=== PATIENT | male | born 1955 | race Caucasian/White ===

== ENCOUNTER 2020-08-02 20:08 | Emergency (ER) | payer OTHER ==
[~2020-08-02] VITALS: Ht 182.9 cm; Wt 115.9 kg
[~2020-08-02 20:08] MED LIST: PERC5TAB8 OR
[2020-08-02] MEDS ORDERED: ONDANSETRON 4MG/2ML VIAL IV ONE (21:15)
[2020-08-02] MEDS ORDERED: MORPHINE 4 MG/ML 1ML VIAL/SYRINGE (J2270) IV PRN (21:15)
[2020-08-02 21:22] LABS: BASO % 0.5 % (0.0-1.0); EOS # 0.1 10^3/uL (0.0-0.5); EOS % 1.7 % (0.0-3.0); HEMATOCRIT 53.8 % (42.0-52.0); HEMOGLOBIN 17.8 g/dl (13.5-17.5); LYMPH # 1.8 10^3/uL (1.5-5.0); LYMPH % 23.7 % (24.0-44.0); MEAN CORPUSCULAR HEMOGLOBIN 30.9 pg (27.0-33.0); MEAN CORPUSCULAR HGB CONC 33.1 g/dl (32.0-36.5); MEAN CORPUSCULAR VOLUME 93.4 fl (80.0-96.0); MONO # 0.5 10^3/uL (0.0-0.8); MONO % 6.5 % (2.0-8.0); NEUTROPHILS # 5.2 10^3/uL (1.5-8.5); NEUTROPHILS % 67.3 % (36.0-66.0); PLATELET COUNT, AUTOMATED 245 10^3/uL (150-450); RED BLOOD COUNT 5.76 10^6/uL (4.30-6.10); WHITE BLOOD COUNT 7.7 10^3/uL (4.0-10.0)
[2020-08-02 21:31] LABS: BLOOD UREA NITROGEN 19 MG/DL (7-18); CALCIUM LEVEL 8.9 MG/DL (8.8-10.2); CARBON DIOXIDE LEVEL 25 MEQ/L (21-32); CHLORIDE LEVEL 107 MEQ/L (98-107); CK-MB VALUE MASS < 1.0 NG/ML (<3.6); CPK CREATINE PHOSPHOKINASE 61 U/L (39-308); CREATININE FOR GFR 1.09 MG/DL (0.70-1.30); GLOMERULAR FILTRATION RATE > 60.0 (>49); GLUCOSE, FASTING 110 MG/DL (70-100); MB/CK RELATIVE INDEX 1.64 (< OR =4); POTASSIUM SERUM 3.4 MEQ/L (3.5-5.1); SODIUM LEVEL 141 MEQ/L (136-145); TROPONIN I < 0.02 NG/ML (< 0.10)
[2020-08-02] MEDS ORDERED: ISOVUE-370 76% 100ML VIAL As Ordered ONE (21:35)
--- NOTE | 2020-08-02 21:46 | REPVR ---
PROCEDURE INFORMATION: Exam: XR Chest Exam date and time: 08/02/2020 9:31 PM Age: 65 years old Clinical indication: Other: Chest pain TECHNIQUE: Imaging protocol: XR of the chest Views: 1 view. COMPARISON: CR Chest, 2 view PA, Lat 05/10/2015 11:45 AM FINDINGS: Lungs: Unremarkable. No consolidation. Pleural spaces: Unremarkable. No pleural effusion. No pneumothorax. Heart/Mediastinum: Unremarkable. No cardiomegaly. Bones/joints: Unremarkable. IMPRESSION: No acute findings. Electronically signed by: Wilton Marcial On 08/02/2020 21:46:52 PM
--- NOTE | 2020-08-02 23:07 | REPVR ---
PROCEDURE INFORMATION: Exam: CT Angiography Chest With Contrast Exam date and time: 08/02/2020 9:44 PM Age: 65 years old Clinical indication: Other: R/O tad TECHNIQUE: Imaging protocol: Computed tomographic angiography of the chest with contrast. 3D rendering (Not supervised by radiologist): MIP and/or 3D reconstructed images were created by the technologist. Radiation optimization: All CT scans at this facility use at least one of these dose optimization techniques: automated exposure control; mA and/or kV adjustment per patient size (includes targeted exams where dose is matched to clinical indication); or iterative reconstruction. Contrast material: ISOVUE 370; Contrast volume: 100 ml; Contrast route: INTRAVENOUS (IV); COMPARISON: CR PORTABLE CHEST X-RAY 08/02/2020 9:25 PM FINDINGS: Pulmonary arteries: Suboptimal opacification of the pulmonary arteries. The main pulmonary artery measures 32 mm. No central pulmonary embolism is identified. Aorta: The ascending thoracic aorta measures 39 mm. No gross or obvious aortic dissection is identified distal to the mid arch. Artifact and image degradation precludes detailed evaluation of the ascending thoracic aorta. Lungs: Minimal bibasilar fibro-atelectatic change with slight interstitial coarsening. Pleural spaces: Unremarkable. No pneumothorax. No pleural effusion. Heart: Unremarkable. No cardiomegaly. No pericardial effusion. Lymph nodes: Unremarkable. No enlarged lymph nodes. Bones/joints: Unremarkable. No acute fracture. Soft tissues: Unremarkable. IMPRESSION: 1. Minimal bibasilar fibro-atelectatic change with slight interstitial coarsening. 2. Otherwise negative CTA chest. No central pulmonary embolism is identified. Motion and/or beam hardening artifact precludes detailed evaluation of the ascending thoracic aorta and subtle aortic dissection is not excluded on this basis although no gross or obvious dissection is seen. Not grossly ruled in does not mean ruled out. Electronically signed by: Kalpesh Su On 08/02/2020 23:08:22 PM
--- NOTE | 2020-08-02 23:11 | REPVR ---
PROCEDURE INFORMATION: Exam: CT Angiography Abdomen and Pelvis With Contrast Exam date and time: 08/02/2020 9:44 PM Age: 65 years old Clinical indication: Other: R/O tad TECHNIQUE: Imaging protocol: Computed tomographic angiography of the abdomen and pelvis with contrast material. 3D rendering (Not supervised by radiologist): MIP and/or 3D reconstructed images were created by the technologist. Radiation optimization: All CT scans at this facility use at least one of these dose optimization techniques: automated exposure control; mA and/or kV adjustment per patient size (includes targeted exams where dose is matched to clinical indication); or iterative reconstruction. Contrast material: ISOVUE 370; Contrast volume: 100 ml; Contrast route: INTRAVENOUS (IV); COMPARISON: CT ABD PELVIS WITH CONTRAST 05/03/2015 1:07 PM FINDINGS: Aorta: There is mild calcification of the abdominal aorta with extension into the iliac arteries. There is no abdominal aortic aneurysm or dissection. Celiac trunk and mesenteric arteries: The celiac artery and branches appear normal. The SMA and branches appear normal. The GINGER is patent. Renal arteries: There are 2 patent right renal arteries and a single patent left renal artery. Right iliac arteries: No occlusion or significant stenosis. Left iliac arteries: No occlusion or significant stenosis. Other veins: Incidental note of a retroaortic left renal vein. Liver: No mass. Gallbladder and bile ducts: Unremarkable. No calcified stones. No ductal dilation. Pancreas: Unremarkable. No mass. No ductal dilation. Spleen: Unremarkable. No splenomegaly. Adrenal glands: Unremarkable. No mass. Kidneys and ureters: There is a right renal cyst measuring 6.9 cm with a Hounsfield measurement of 7 consistent with a Bosniak 1 cyst. This is redemonstrated since 05/03/2015 and is mildly increased in size. Nonobstructing bilateral renal calculi. Stomach and bowel: There is colonic diverticulosis without evidence of diverticulitis. Appendix: A normal appendix is seen. Intraperitoneal space: Unremarkable. No free air. No significant fluid collection. Lymph nodes: Unremarkable. No enlarged lymph nodes. Urinary bladder: Unremarkable. No mass. Reproductive: Unremarkable as visualized. Bones/joints: No acute fracture. No dislocation. Soft tissues: Unremarkable. IMPRESSION: 1. Colonic diverticulosis without diverticulitis. 2. Nonobstructing bilateral renal calculi. 3. Otherwise negative CTA abdomen/pelvis. No abdominal aortic aneurysm or dissection. Electronically signed by: Kalpesh Su On 08/02/2020 23:12:32 PM
[2020-08-02] MEDS ORDERED: KETOROLAC 30 MG/ML 1ML VIAL IV ONE (23:30)
[2020-08-03 00:31] VITALS: BP 118/84
[2020-08-03 02:32] LABS: CK-MB VALUE MASS < 1.0 NG/ML (<3.6); CPK CREATINE PHOSPHOKINASE 62 U/L (39-308); MB/CK RELATIVE INDEX 1.61 (< OR =4); TROPONIN I < 0.02 NG/ML (< 0.10)
--- NOTE | 2020-08-03 15:20 | ECGEPIP ---
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
--- NOTE | 2020-08-03 15:21 | ECGEPIP ---
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
== END 2020-08-03 02:54 | disposition home or self-care (01) ==
LOC: M ED 20:08
DX: R10.30 Lower abdominal pain, unspecified (principal); R07.9 Chest pain, unspecified; M54.2 Cervicalgia; K57.30 Diverticulosis of large intestine without perforation or abscess without bleeding; N20.0 Calculus of kidney; I10 Essential (primary) hypertension; K21.9 Gastro-esophageal reflux disease without esophagitis; E66.9 Obesity, unspecified; Z87.891 Personal history of nicotine dependence
CPT/HCPCS: 71045; 71275; 74174; 80047; 80048; 82550; 82553; 85025; 93005; 93041; 94760; 96374; 96375; 99285; J1885; J2270; J2405; Q9967

== ENCOUNTER 2020-09-16 07:44 | Emergency (ER) | payer MEDICARE ==
[~2020-09-16] VITALS: Ht 182.9 cm; Wt 113.6 kg
[2020-09-16] MEDS ORDERED: ATOR1TAB19 PO (08:16)
[2020-09-16] MEDS ORDERED: LISI10TA22 PO (08:16)
--- NOTE | 2020-09-16 08:17 | REP ---
INDICATION: CHEST PAIN. COMPARISON: Comparison chest x-ray August 02, 2020. TECHNIQUE: Portable upright AP chest radiograph. FINDINGS: The lungs are well inflated and free of infiltrate. Pleural angles are sharp. Heart size is normal. Pulmonary vasculature is not increased. Monitoring electrodes are is visible. IMPRESSION: No active disease. <Electronically signed by Mal Camacho > 09/16/20 [id number]
[2020-09-16 08:27] LABS: BASO % 0.5 % (0.0-1.0); EOS # 0.1 10^3/uL (0.0-0.5); HEMOGLOBIN 17.4 g/dl (13.5-17.5); MEAN CORPUSCULAR HEMOGLOBIN 31.8 pg (27.0-33.0); MEAN CORPUSCULAR HGB CONC 34.1 g/dl (32.0-36.5); MEAN CORPUSCULAR VOLUME 93.1 fl (80.0-96.0); MONO # 0.3 10^3/uL (0.0-0.8); MONO % 5.2 % (2.0-8.0); NEUTROPHILS # 4.3 10^3/uL (1.5-8.5); NEUTROPHILS % 75.1 % (36.0-66.0); PLATELET COUNT, AUTOMATED 230 10^3/uL (150-450); RED BLOOD COUNT 5.48 10^6/uL (4.30-6.10); WHITE BLOOD COUNT 5.7 10^3/uL (4.0-10.0)
[2020-09-16 08:32] LABS: INR 1.1; PROTHROMBIN TIME 14.5 SECONDS (12.5-14.3)
[2020-09-16 08:33] LABS: PARTIAL THROMBOPLASTIN TIME 28.2 SECONDS (24.2-38.5)
[2020-09-16 08:59] LABS: ALT/SGPT 36 U/L (12-78); BILIRUBIN,DIRECT 0.3 MG/DL (0.0-0.2); BILIRUBIN,TOTAL 0.8 MG/DL (0.2-1.0); BLOOD UREA NITROGEN 16 MG/DL (7-18); CALCIUM LEVEL 9.5 MG/DL (8.8-10.2); CARBON DIOXIDE LEVEL 23 MEQ/L (21-32); CHLORIDE LEVEL 110 MEQ/L (98-107); CK-MB VALUE MASS < 1.0 NG/ML (<3.6); CPK CREATINE PHOSPHOKINASE 52 U/L (39-308); FREE T4 1.09 NG/DL (0.76-1.46); GLOMERULAR FILTRATION RATE > 60.0 (>49); GLUCOSE, FASTING 135 MG/DL (70-100); LIPASE 78 U/L (73-393); MB/CK RELATIVE INDEX 1.92 (< OR =4); POTASSIUM SERUM 3.4 MEQ/L (3.5-5.1); SODIUM LEVEL 141 MEQ/L (136-145); TROPONIN I < 0.02 NG/ML (< 0.10)
--- NOTE | 2020-09-16 09:40 | ECGEPIP ---
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
--- NOTE | 2020-09-16 11:54 | REP ---
INDICATION: right radicular pain. COMPARISON: None. TECHNIQUE: Sagittal T1, T2, STIR, axial T1 and T2 weighted images obtained. FINDINGS: There is [id number] multilevel degenerative disc disease with loss of disc height and normal disc signal seen diffusely throughout the lumbar spine. Vertebral heights are overall preserved. No malalignments. Conus ends normally at L1 level. On the review of axial images, At L1-2 no significant canal or foraminal narrowing At L2-3 and L3-4 disc bulge with mild canal narrowing and mild bilateral foraminal narrowing At L4-5 there is a Schmorl's node in the inferior endplate of L4. There is mild canal narrowing and fada-ez-eamhwduk bilateral foraminal narrowing that appears greater on the right. At L5-S1 loss of disc height with moderate bilateral foraminal narrowing and no significant canal stenosis. IMPRESSION: 1. No acute findings. 2. Akiu-vg-uoehkpdm multilevel degenerative disc disease. 3. No limiting canal stenosis. 4. Developing Schmorl's node in the inferior endplate of L4. 5. Degenerative changes contribute to [id number]-[id number]-ybbldhml bilateral foraminal narrowing at L4-5, and moderate bilateral foraminal narrowing at L5-S1. <Electronically signed by Bret Darden > 09/16/20 [id number]
[2020-09-16] MEDS ORDERED: OMEG12003 PO (12:09)
[2020-09-16] MEDS ORDERED: VITA-243 PO (12:09)
[2020-09-16] MEDS ORDERED: CYCL5TAB PO (12:39)
[2020-09-16] MEDS ORDERED: NAPR-837 PO (12:39)
[2020-09-16 12:45] VITALS: BP 169/88
== END 2020-09-16 12:54 | disposition home or self-care (01) ==
LOC: M ED 07:44
DX: M51.16 Intervertebral disc disorders with radiculopathy, lumbar region (principal); R07.9 Chest pain, unspecified; I10 Essential (primary) hypertension; K21.9 Gastro-esophageal reflux disease without esophagitis; Z79.899 Other long term (current) drug therapy

== ENCOUNTER → 2020-10-29 | Outpatient (REF) | payer MEDICARE ==
[~2020-10-29] MED LIST changes: +ATOR1TAB19 PO; +CYCL5TAB PO; +LISI10TA22 PO; +NAPR-837 PO; +OMEG12003 PO; +VITA-243 PO
[2020-10-29 18:08] LABS: APPEARANCE, URINE CLEAR (CLEAR); BACTERIA, URINE AUTO NEGATIVE (NEGATIVE); BILIRUBIN, URINE AUTO NEGATIVE (NEGATIVE); BLOOD, URINE BLOOD 3+ (NEGATIVE); COLOR, URINE YELLOW (YELLOW); GLUCOSE, URINE (UA) AUTO NEGATIVE (NEGATIVE); KETONE, URINE AUTO NEGATIVE (NEGATIVE); LEUKOCYTE ESTERASE, URINE AUTO NEGATIVE (NEGATIVE); NITRITE, URINE AUTO NEGATIVE (NEGATIVE); PROTEIN, URINE AUTO NEGATIVE (NEGATIVE); RBC, URINE AUTO 77 /HPF (0-3); SQUAMOUS EPITHELIAL CELL UR AU 0 /HPF (0-6); UROBILINOGEN, URINE AUTO 0.2 mg/dL (0.0-2.0); WBC, URINE AUTO 2 /HPF (0-3)
== END ==
LOC: M SMT 17:27
PROVIDERS: ATTEND Nurse Practitioner Family
DX: N20.0 Calculus of kidney (principal); R31.9 Hematuria, unspecified
CPT/HCPCS: 81001; 87086; 88108; G0463

== ENCOUNTER → 2020-12-06 | Outpatient (CLI) | payer MEDICARE | LOC: M SLEEP HO 11:22 | PROVIDERS: ATTEND Internal Medicine Cardiovascular Disease | DX: I27.20 Pulmonary hypertension, unspecified (principal) ==

== ENCOUNTER → 2021-12-16 | Outpatient (REF) | payer MEDICARE | LOC: M SFHCDERM 12:35 | PROVIDERS: ATTEND Nurse Practitioner Family | DX: L85.8 Other specified epidermal thickening (principal) ==

== ENCOUNTER → 2022-02-04 | Outpatient (REF) | payer MEDICARE | LOC: M LAB REF 17:17 | PROVIDERS: ATTEND Ophthalmology | DX: D23.112 Other benign neoplasm of skin of right lower eyelid, including canthus (principal); L91.8 Other hypertrophic disorders of the skin ==

== ENCOUNTER → 2022-02-05 | Outpatient (REF) | payer MEDICARE | LOC: M SFHCDERM 17:12 | PROVIDERS: ATTEND Nurse Practitioner Family | DX: L82.0 Inflamed seborrheic keratosis (principal); L90.5 Scar conditions and fibrosis of skin ==

== ENCOUNTER → 2023-07-26 | Outpatient (REF) | payer MEDICARE ==
[2023-07-26 14:38] LABS: FREE T4 0.96 NG/DL (0.89-1.76); THYROID STIMULATING HORMONE 3.029 uIU/ML (0.55-4.78)
== END ==
LOC: M LABDRWAD 13:28
PROVIDERS: ATTEND Nurse Practitioner Family
DX: E03.9 Hypothyroidism, unspecified (principal)

== ENCOUNTER → 2023-10-08 | Outpatient (REF) | payer MEDICARE ==
[2023-10-08 13:37] LABS: BASO % 0.7 % (0.0-1.0); EOS # 0.2 10^3/uL (0.0-0.5); EOS % 3.2 % (0.0-3.0); HEMATOCRIT 51.2 % (42.0-52.0); HEMOGLOBIN 17.2 g/dl (13.5-17.5); LYMPH # 1.9 10^3/uL (1.5-5.0); LYMPH % 33.6 % (24.0-44.0); MEAN CORPUSCULAR HEMOGLOBIN 31.7 pg (27.0-33.0); MEAN CORPUSCULAR HGB CONC 33.6 g/dl (32.0-36.5); MEAN CORPUSCULAR VOLUME 94.5 fl (80.0-96.0); MONO # 0.5 10^3/uL (0.0-0.8); MONO % 8.8 % (2.0-8.0); NEUTROPHILS % 53.3 % (36.0-66.0); PLATELET COUNT, AUTOMATED 208 10^3/uL (150-450); RED BLOOD COUNT 5.42 10^6/uL (4.30-6.10); WHITE BLOOD COUNT 5.7 10^3/uL (4.0-10.0)
[2023-10-08 14:56] LABS: ALBUMIN 4.1 G/DL (3.2-5.2); ALKALINE PHOSPHATASE 82 U/L (46-116); ALT/SGPT 52 U/L (7.0-40); AST/SGOT 37 U/L (<34); BLOOD UREA NITROGEN 22 MG/DL (9-23); CALCIUM LEVEL 9.3 MG/DL (8.3-10.6); CARBON DIOXIDE LEVEL 24 MMOL/L (20-31); CHLORIDE LEVEL 105 MMOL/L (98-107); CHOLESTEROL LEVEL 137 MG/DL (<200); CHOLESTEROL RISK RATIO 3.44 (<5); CREATININE FOR GFR 1.06 MG/DL (0.70-1.30); GLOMERULAR FILTRATION RATE > 60.0 (>42); GLUCOSE, FASTING 113 MG/DL (74-106); HDL CHOLESTEROL 39.8 MG/DL (>40); LDL CHOLESTEROL 68.2 MG/DL (<100); NON-HDL-C 97.2 MG/DL; POTASSIUM SERUM 3.9 MMOL/L (3.5-5.1); SODIUM LEVEL 138 MMOL/L (136-145); THYROID STIMULATING HORMONE 4.159 uIU/ML (0.55-4.78); TRIGLYCERIDES LEVEL 145 MG/DL (<150)
== END ==
LOC: M LABDRWAD 12:27
PROVIDERS: ATTEND Nurse Practitioner Family
DX: E78.5 Hyperlipidemia, unspecified (principal); E08.00 Diabetes mellitus due to underlying condition with hyperosmolarity without nonketotic hyperglycemic-hyperosmolar coma (NKHHC); E03.9 Hypothyroidism, unspecified

== ENCOUNTER → 2024-12-19 | Outpatient (REF) | payer MEDICARE ==
[~2024-12-19] MED LIST changes: -CYCL5TAB PO; +CYCL5TAB4 PO; +FISHCAP PO; +METF750T36 PO; +SILD100T PO
[2024-12-19 14:07] LABS: BASO # 0.1 10^3/uL (0.0-0.2); BASO % 0.6 % (0.0-1.0); EOS # 0.4 10^3/uL (0.0-0.5); EOS % 5.3 % (0.0-3.0); LYMPH # 1.5 10^3/uL (1.5-5.0); LYMPH % 18.9 % (24.0-44.0); MONO # 0.5 10^3/uL (0.0-0.8); MONO % 6.2 % (2.0-8.0); NEUTROPHILS # 5.3 10^3/uL (1.5-8.5); NEUTROPHILS % 68.6 % (36.0-66.0); PLATELET COUNT, AUTOMATED 228 10^3/uL (150-450)
[2024-12-19 14:15] LABS: ALT/SGPT 23.0 U/L (7.0-40); AST/SGOT 23.0 U/L (<34); CALCIUM LEVEL 9.2 MG/DL (8.3-10.6); CARBON DIOXIDE LEVEL 29.0 MMOL/L (20-31); CHLORIDE LEVEL 107.0 MMOL/L (98-107); CHOLESTEROL LEVEL 160.0 MG/DL (<200); CHOLESTEROL RISK RATIO 3.82 (<5); CREATININE FOR GFR 1.18 MG/DL (0.70-1.30); GLOMERULAR FILTRATION RATE 66.0 (>42); LDL CHOLESTEROL 71.6 MG/DL (<100); NON-HDL-C 118.2 MG/DL; POTASSIUM SERUM 3.6 MMOL/L (3.5-5.1); PSA SCREENING 1.3 NG/ML (< 4.00); SODIUM LEVEL 147.0 MMOL/L (136-145); TRIGLYCERIDES LEVEL 233.0 MG/DL (<150)
[2024-12-19 14:47] LABS: ESTIMATED AVERAGE GLUCOSE 117.0 MG/DL (60-110)
== END ==
LOC: M LABDRWAD 13:05
PROVIDERS: ATTEND Nurse Practitioner Family
DX: E03.9 Hypothyroidism, unspecified (principal); E11.00 Type 2 diabetes mellitus with hyperosmolarity without nonketotic hyperglycemic-hyperosmolar coma (NKHHC); Z12.5 Encounter for screening for malignant neoplasm of prostate
CPT/HCPCS: 36415; 80053; 80061; 83036; 84443; 85025; G0103

== ENCOUNTER → 2024-12-21 | Outpatient (REF) | payer MEDICARE ==
[2024-12-21 13:37] LABS: CREATININE FOR GFR 1.17 MG/DL (0.70-1.30); GLOMERULAR FILTRATION RATE 66.7 (>42)
== END ==
LOC: M LABDRWAD 13:01
PROVIDERS: ATTEND Otolaryngology
DX: D37.030 Neoplasm of uncertain behavior of the parotid salivary glands (principal)

== ENCOUNTER → 2024-12-25 | Outpatient (REF) | payer MEDICARE ==
[2024-12-25 18:25] LABS: CALCIUM LEVEL 9.9 MG/DL (8.3-10.6); CARBON DIOXIDE LEVEL 28.0 MMOL/L (20-31); CHLORIDE LEVEL 105.0 MMOL/L (98-107); CREATININE FOR GFR 1.2 MG/DL (0.70-1.30); GLOMERULAR FILTRATION RATE 64.7 (>42); PLATELET COUNT, AUTOMATED 270 10^3/uL (150-450); POTASSIUM SERUM 3.9 MMOL/L (3.5-5.1); SODIUM LEVEL 148.0 MMOL/L (136-145)
== END ==
LOC: M LABSMT 11:49
PROVIDERS: ATTEND Urology
DX: Z01.818 Encounter for other preprocedural examination (principal); N20.0 Calculus of kidney; N39.0 Urinary tract infection, site not specified

== ENCOUNTER → 2024-12-26 | Outpatient (CLI) | payer MEDICARE ==
[~2024-12-26] MED LIST changes: +ISOVUE-370 76% 100 ML VIAL As Ordered ONE
== END ==
LOC: M RAD 14:43
PROVIDERS: ATTEND Otolaryngology
DX: D37.030 Neoplasm of uncertain behavior of the parotid salivary glands (principal)
CPT/HCPCS: 70491; Q9967

== ENCOUNTER → 2024-12-29 | Day surgery (SDC) | payer MEDICARE ==
[~2024-12-29] VITALS: Ht 180.3 cm; Wt 116.8 kg
[~2024-12-29] MED LIST changes: +ACETAMINOPHEN 1000MG/100ML IV BAG As Ordered ONE; +HYDROMORPHONE HCL 0.5 MG/0.5 ML SYRINGE IV PRN; +ISOVUE-300 61% 100 ML VIAL As Ordered ONE; -ISOVUE-370 76% 100 ML VIAL As Ordered ONE; +KETOROLAC 30 MG/ML 1 ML VIAL As Ordered ONE; +LIDOCAINE 2% 100 MG/5 ML SDV (FOR ANES.) As Ordered ONE; +LR 1,000 ML IV SCH; +ONDANSETRON 4MG 2ML VIAL As Ordered ONE; +ONDANSETRON 4MG 2ML VIAL IV PRN
[2024-12-29] MEDS: ceFAZolin SOD 2 GM IV ONCE IV ONE (12:15)
[2024-12-29 15:22] VITALS: BP 158/75; TEMP 97.6; O2SAT 96
== END | disposition home or self-care (01) ==
LOC: M SDC 11:20
PROVIDERS: ATTEND Urology
DX: N20.2 Calculus of kidney with calculus of ureter (principal); I10 Essential (primary) hypertension; E78.5 Hyperlipidemia, unspecified; E11.9 Type 2 diabetes mellitus without complications; Z79.84 Long term (current) use of oral hypoglycemic drugs; Z79.899 Other long term (current) drug therapy
CPT/HCPCS: 52332; 52352; 76000; 82365; C1769; C1894; C2617; J0131; J0690; J1885; J2405; J3010; Q9967

== ENCOUNTER → 2025-03-15 | Outpatient (CLI) | payer MEDICARE ==
[~2025-03-15] MED LIST changes: -ACETAMINOPHEN 1000MG/100ML IV BAG As Ordered ONE; -HYDROMORPHONE HCL 0.5 MG/0.5 ML SYRINGE IV PRN; -ISOVUE-300 61% 100 ML VIAL As Ordered ONE; -KETOROLAC 30 MG/ML 1 ML VIAL As Ordered ONE; +LIDOCAINE 1% MDV 20 ML VIAL SC ONE; -LIDOCAINE 2% 100 MG/5 ML SDV (FOR ANES.) As Ordered ONE; -LR 1,000 ML IV SCH; -ONDANSETRON 4MG 2ML VIAL As Ordered ONE; -ONDANSETRON 4MG 2ML VIAL IV PRN
== END ==
LOC: M IRPRO 09:27
PROVIDERS: ATTEND Otolaryngology
DX: D37.030 Neoplasm of uncertain behavior of the parotid salivary glands (principal)